=== PATIENT | female | born 1975 | race American Indian/Alaskan Native ===

== ENCOUNTER 2018-06-10 14:07 | Outpatient (CLI) | payer OTHER ==
--- NOTE | 2018-06-10 15:40 | Mammography Report ---
RIGHT DIGITAL DIAGNOSTIC MAMMOGRAM: 06/10/18 14:07:00 CLINICAL: For clip placement immediately status post ultrasound biopsy of a mass at 12:30 o'clock near the pectoral muscle. COMPARISON:[facility] 04/29/18 mammogram and right breast ultrasound FINDINGS: A biopsy clip is now identified near the pectoral muscle at 12:30 o'clock and the clip position is concordant with the previously described lesion. Injected lidocaine obscures the margins of the mass. IMPRESSION: Concordant clip placement status post ultrasound biopsy. BI-RADS CATEGORY: 4--Suspicious Pathology pending.
--- NOTE | 2018-06-10 15:47 | Ultrasound Report ---
ULTRASOUND GUIDED NEEDLE CORE BIOPSY RIGHT BREAST WITH CLIP PLACEMENT: 06/10/18 CLINICAL: A shadowing 1 cm right breast mass described to be at 2 o'clock 6 cm from the nipple. COMPARISON :[facility] 04/29/18 FINDINGS: The procedure was explained to the patient and informed consent was obtained. Ultrasound demonstrated a hyperechoic 12 mm shadowing mass at approximately 12 o'clock 8 cm from the nipple. It correlates with the previously described lesion in the different clock position is best explained by different positioning of the breast. I marked the breast with a felt tip marker and a time out was called. The skin was prepped with Betadine and anesthetized with 1% lidocaine. Needle core biopsy was performed through a tiny dermatotomy using ultrasound guidance, 2% lidocaine with epinephrine for deep anesthesia and a 14-gauge Achieve biopsy device. 3 cores were obtained and placed in formalin. A clip was deployed within the mass. The patient tolerated the procedure well and there were no apparent complications. Hemostasis was achieved with minimal pressure and a sterile dressing was applied. A two view mammogram demonstrated concordant for placement. She left the department in good condition and was given instructions for wound care and followup. IMPRESSION: Uncomplicated ultrasound guided needle core biopsy with clip placement right breast.
== END 2018-06-10 14:08 | disposition home or self-care (01) ==
LOC: SPVWC 14:07
PROVIDERS: ATTEND Surgery
DX: C50.211 Malignant neoplasm of upper-inner quadrant of right female breast (principal); Z79.899 Other long term (current) drug therapy; Z88.8 Allergy status to other drugs, medicaments and biological substances
CPT/HCPCS: 88305; 88341; 88342

== ENCOUNTER 2018-07-09 08:29 | Outpatient (CLI) | payer OTHER ==
--- NOTE | 2018-07-13 13:47 | Magnetic Resonance Report ---
BILATERAL BREAST MRI WITHOUT AND WITH CONTRAST: 07/09/18 08:29:00 CLINICAL: Newly diagnosed right breast cancer. Status post ultrasound-guided biopsy of a right breast mass at 12 o'clock 8 cm from the nipple on 06/10/18. Pathology: Invasive carcinoma NOS, Nik grade I/III, ER/NH 100% positive, HER-2 negative and Ki-67 20%. COMPARISON:Bilateral mammogram and right breast ultrasound from [facility] 04/29/18. TECHNIQUE: Axial 1.0-mm T1 without, axial high resolution 2.0-mm T2 and axial 1.0-mm dynamic Vibrant high-resolution postcontrast T1 fat saturation sequences on a 1.5 Lashae magnet. The examination was performed with an 8 channel dedicated [employer] breast coil. Post processing with CAD and subtraction was performed on an [employer] workstation. 15.0 cc of Multihance was injected without incident for the contrast portion of the exam. Consent was obtained prior to the administration of the contrast. FINDINGS: Motion degrades the quality of this examination. The patient moved on 3 of 4 of the postcontrast sequences and on other sequences as well. Right: Marked background parenchymal enhancement. The known cancer is an irregular enhancing mass at approximately 12 o'clock 12 cm from the nipple and approximately 3 cm from the pectoral muscle. It contains a biopsy clip and measures approximately 11.0 x 16.0 x 12.0 mm. These measurements correlate well mass and calcifications on recent mammograms and with a 12 mm mass by ultrasound. The mass demonstrates heterogeneous enhancement with mixed kinetics, 492% peak enhancement and 61% type III washout. No other mass or suspicious enhancement of the right breast. No suspicious right axillary or right internal mammary lymph nodes. Left: Marked background parenchymal enhancement. No mass or suspicious enhancement. No suspicious left axillary or left internal mammary lymph nodes. IMPRESSION: Known 16mm right breast cancer and no additional suspicious lesions of either breast. No suspicious lymph nodes. RIGHT BI-RADS 6 -- Known Cancer LEFT BI-RADS 1 - - Negative
== END 2018-07-09 08:30 | disposition home or self-care (01) ==
LOC: SPVIMAG 08:29
PROVIDERS: ATTEND Surgery
DX: C50.911 Malignant neoplasm of unspecified site of right female breast (principal)
CPT/HCPCS: A9577; C8908; 77049

== ENCOUNTER 2019-02-22 08:40 | Outpatient (CLI) | payer OTHER ==
--- NOTE | 2019-02-22 09:44 | Mammography Report ---
DIGITAL BILATERAL DIAGNOSTIC MAMMOGRAM WITH CAD, WITHOUT TOMOSYNTHESIS 02/22/2019 INDICATION: RIGHT BREAST CANCER. Status post right partial mastectomy 08/18/2018 with subsequent radia tion therapy. TECHNIQUE: Digital bilateral mammographic imaging was performed. This examination was interpreted with the benefit of Computer-aided Detection analysis. COMPARISON: 06/10/2018 right mammogram. No left comparison. Breast Density: The breasts are heterogeneously dense, which may obscure small masses. FINDINGS: Benign right upper inner posterior scar. Moderate skin thickening of the right breast. No m ass, architectural distortion or suspicious calcifications. IMPRESSION: No mammographic evidence of malignancy. Follow up recommendation: Routine BI-RADS Category 2: Benign. A "normal" or negative report should not discourage follow up or biopsy of a clinically significant f inding. A written summary of these findings will be mailed to the patient. The patient will be entered into a mammography reporting system which will generate a reminder letter for the patient's next appointmen t at the appropriate interval. According to the [employer], yearly mammograms are recommended starting at age 40 and continuing as long as a woman is in good health. Breast MRI is recommended for women with an mauro roximately 20-25% or greater lifetime risk of breast cancer, including women with a strong family his tory of breast or ovarian cancer and women who have been treated for Hodgkin's disease. Signer Name: Marlon Rowe MD Signed: 02/22/2019 9:40 AM Workstation Name: [id number]
== END 2019-02-22 08:41 | disposition home or self-care (01) ==
LOC: SPVWC 08:40
PROVIDERS: ATTEND Surgery
DX: R92.8 Other abnormal and inconclusive findings on diagnostic imaging of breast (principal); Z85.3 Personal history of malignant neoplasm of breast
CPT/HCPCS: 77066

== ENCOUNTER 2020-03-05 09:55 | Outpatient (CLI) | payer OTHER ==
--- NOTE | 2020-03-05 12:53 | Mammography Report ---
DIGITAL SCREENING MAMMOGRAM WITH TOMOSYNTHESIS WITH CAD, 03/05/2020 CLINICAL INFORMATION / INDICATION: Routine Screening Mammography. History of right breast cancer with lumpectomy and radiation therapy in August 2018. TECHNIQUE: Digital bilateral 2D and 3D mammography with tomosynthesis was obtained in the craniocaud al and mediolateral oblique projections. Computer-Aided Detection (CAD) analysis was used for interp retation of this study. COMPARISON: 02/22/2019 FINDINGS: Breast Density: The breasts are heterogeneously dense, which may obscure small masses. No dominant mass, suspicious calcifications, or architectural distortion in either breast. Right surgical and radiation therapy changes are again noted, best appreciated on MLO view and not we ll seen on cc view due to posterior location. No obvious changes are seen. IMPRESSION: No mammographic evidence of malignancy. Follow up recommendation: Routine yearly BI-RADS Category 2: Benign. A "normal" or negative report should not discourage follow up or biopsy of a clinically significant f inding. A written summary of these findings will be mailed to the patient. The patient will be entered into a mammography reporting system which will generate a reminder letter for the patient's next appointmen t at the appropriate interval. The [employer] recommends yearly mammograms starting at age 40 and continuing as l olamide as a woman is in good health. Breast MRI is recommended for women with an approximate 20-25% or greater lifetime risk of breast cancer, including women with a strong family history of breast or ova alli cancer or who have been treated for Hodgkin's disease. Signer Name: German Perez MD Signed: 03/05/2020 12:48 PM Workstation Name: [id number]
== END 2020-03-05 09:56 | disposition home or self-care (01) ==
LOC: SPVWC 09:55
PROVIDERS: ATTEND Surgery
DX: Z12.31 Encounter for screening mammogram for malignant neoplasm of breast (principal); N64.89 Other specified disorders of breast
CPT/HCPCS: 77063; 77067

== ENCOUNTER 2020-10-02 09:38 | Outpatient (CLI) | payer OTHER ==
--- NOTE | 2020-10-02 11:40 | Magnetic Resonance Report ---
MRI BREAST BILATERAL WITH AND WITHOUT CONTRAST, 10/02/2020 CLINICAL INFORMATION / INDICATION: PERSONAL HX OF MALIGNANT NEOPLASM OF BREAST. History of right [address] [facility] cancer. TECHNIQUE: Axial T1 and T2-weighted fat sat images were obtained precontrast. 16 cc Clariscan contras t was injected intravenously and serial axial T1 weighted images with fat saturation were obtained. 3 -D MIP projections, kinetic analysis, and subtraction imaging were utilized to evaluate. A dedicated 8-channel breast coil was used for image acquisition. COMPARISON: Screening mammogram from 03/05/2020, Breast MRI from 07/09/2018. FINDINGS: BREAST DENSITY: Scattered areas of fibroglandular density. BACKGROUND ENHANCEMENT: Low level background enhancement within both breasts. RIGHT BREAST: No dominant mass or suspicious area of enhancement in the right breast. Expected postbi opsy changes are noted posteriorly along the 12:00 position as well as the upper inner quadrant. LEFT BREAST: No dominant mass or suspicious area of enhancement in the left breast. AXILLAE: No pathologically enlarged axillary lymph nodes. ADDITIONAL FINDINGS: Limited imaging of the thorax and upper abdomen demonstrates no focal abnormalit y. IMPRESSION: No MRI evidence of malignancy. Follow up recommendation: Back to schedule. BI-RADS Category 2: Benign. Signer Name: Shawn Cuello MD Signed: 10/02/2020 11:36 AM Workstation Name: [id number]
== END 2020-10-02 09:39 | disposition home or self-care (01) ==
LOC: SPVIMAG 09:38
PROVIDERS: ATTEND Surgery
DX: N64.89 Other specified disorders of breast (principal); Z85.3 Personal history of malignant neoplasm of breast
CPT/HCPCS: A9575; C8908; 77049